=== PATIENT | female | born 1960 | race Caucasian/White ===

== ENCOUNTER 2019-10-19 14:17 | Inpatient (IN) | payer MEDICAID, SELFPAY ==
[2019-10-19 14:24] VITALS: BP 198/113; PULSE 128; RESP 18; TEMP 36.8; O2SAT 97; BMI 29.2
--- NOTE | 2019-10-19 14:29 | W.ED.GENADLT ---
HPI - General Adult General: Chief complaint: Psychiatric Symptoms Stated complaint: mhe Time Seen by Provider: 10/19/19 14:25 History of Present Illness: HPI narrative: Kendra is a 59-year-old female who comes in under a 96-hour hold. She made threats to her family about wanting to cut herself. She is been placed under 96-hour hold by the unit director and is here for medical clearance before going to the NPU. The patient denies any complaints or concerns at this time. Associated symptoms: Deny chest pain, confusion, diaphoresis, dyspnea, headache(s), malaise, nausea, rash, palpitations, syncope or vomiting Review of Systems General: Reports: other (negative unless marked) Const: Denies: fever, chills, body aches, fatigue, malaise or diaphoresis Eyes: Denies: change in vision or blurry vision ENMT: Denies: throat pain, painful swallowing, hoarseness, ear pain, ear discharge, Change in hearing or nasal discharge Card: Denies: chest pain, palpitations, irregular heart rhythm, syncope, pre-syncope, shortness of breath on exertion or shortness of breath when lying down Resp: Denies: shortness of breath, productive cough, non-productive cough, wheezing, coughing up blood or chest congestion GI: Denies: abdominal pain, nausea, vomiting, vomiting blood, coffee grounds in vomit, diarrhea, constipation, cramping, blood in stool or black tarry stool : Denies: flank pain, painful urination, urinary frequency, urinary urgency, decreased urine ouput, urinary incontinence or blood in urine Musc: Denies: neck pain, back pain, extremity pain, extremity swelling, joint pain, joint swelling, joint warmth or joint stiffness Skin/Breast: Denies: rash, skin tenderness or yellow skin Neuro: Denies: headache, numbness in extremities, weakness in extremities, changes in sensation, lack of coordination, difficulty walking, dizziness, vertigo or confusion Endo: Denies: excessive thirst, tired all the time, cold intolerance, excessive sweating, flushing or hot flashes Umair/Lymph: Denies: easy bruising, easy bleeding, petechiae or enlarged lymph nodes All/Imm: Denies: hives, throat swelling, tongue swelling, facial swelling or acute wheezing PFSH ED PFSH: Social History Smoking and tobacco status: never smoked Physical Exam Const: COMMON NORMALS: no apparent distress, oriented x3, no limitations, healthy appearing and well nourished EXAM LIMITATIONS: no altered mental status GENERAL APPEARANCE: cooperative, well kempt and well developed ORIENTATION/CONSCIOUSNESS: Yes awake HENMT: COMMON NORMALS: normocephalic, head/scalp atraumatic, hearing grossly normal bilaterally, external ears normal, EAC's normal, external nose normal and moist oral mucous membranes HEAD & SCALP: normal to inspection, normocephalic and atraumatic FACE & SINUS: normal facial exam and face symmetric NOSE: external nose normal and nares normal EXTERNAL EAR: Yes external ears normal EXTERNAL AUDITORY CANAL: EAC's normal MOUTH: oral and palatal mucosa normal and tongue normal Eye: COMMON NORMALS: PERRL, EOMs intact bilaterally, conjunctivae normal and no scleral icterus GENERAL EYE: normal appearance of both eyes and normal light reflex CONJUNCTIVA: Yes conjunctivae normal SCLERA: sclerae normal CORNEA: Yes corneas normal PUPIL: Yes PERRL DIRECT OPHTHALMOSCOPY: Yes normal light reflex Neck/C-Spine: COMMON NORMALS: full ROM, no lymphadenopathy, supple, no meningeal signs and no JVD GENERAL: Yes normal visual inspection and Yes trachea midline CERVICAL SPINE: Yes cervical ROM normal Chest: COMMONS NORMALS: inspection of chest normal and palpation of chest normal Resp: COMMON NORMALS: normal respiratory effort, no retractions, no use of accessory muscles and clear to auscultation bilaterally EFFORT & INSPECTION: Yes able to speak in complete sentences AUSCULTATION: clear to auscultation bilaterally Cardio: COMMON NORMALS: no JVD, regular rate, regular rhythm, S1 normal heart sound, S2 normal heart sound, no gallops, no clicks, no murmurs and no rub JUGULAR VENOUS DISTENTION: no JVD RATE: regular rate RHYTHM: regular rhythm HEART SOUNDS: S1 normal and S2 normal GI: COMMON NORMALS: soft to palpation, non-tender, no hepatosplenomegaly and no masses INSPECTION: Yes normal to inspection PALPATION: Yes soft and Yes no hepatosplenomegaly : COMMON NORMALS: Yes no CVA tenderness BLADDER/KIDNEY EXAM: Yes no CVA tenderness Back/Pelvis: COMMON NORMALS: no CVA tenderness, thoracic and lumbar spine normal to inspection, no thoracic nor lumbar tenderness and thoraco-lumbar ROM normal Extremity: COMMON NORMALS: normal to inspection, full ROM, normal capillary refill, no joint enlargement, no clubbing, cyanosis or edema and no calf tenderness Neuro: COMMON NORMALS: oriented x3, CN's II-XII intact bilaterally, moves all extremities, no focal motor deficits and no sensory deficits noted MENINGEAL SIGNS: Yes no meningeal signs Psych: COMMON NORMALS: mental status grossly normal, thought process normal, cooperative, affect normal, speech normal and activity/motor behavior normal APPEARANCE: Yes well kempt SPEECH: Yes normal speech THOUGHT PROCESS: normal thought process Skin: COMMON NORMALS: no rashes or lesions noted, skin turgor normal, no jaundice, no petechiae and no mottling GENERAL SKIN EXAM: no rashes or lesions noted and turgor normal Course Vital Signs: Vital signs: Vital Signs Temperature 97.6 F 10/19/19 17:24 Pulse Rate 96 10/19/19 17:24 Respiratory Rate 20 H 10/19/19 17:24 Blood Pressure 167/101 10/19/19 17:24 Pulse Oximetry 98 10/19/19 17:24 MDM - General Adult MDM Narrative: Medical decision making narrative: The case was reviewed with Dr. cheng he agrees to admit the patient under 96-hour hold. Lab Data: Attestation: I reviewed the patient's lab results. Labs: Lab Results 10/19/19 Range/Units 14:42 HCG, Qual Negative (Negative) EKG Data^: EKG 1: Attestation: I personally reviewed and interpreted this EKG as follows: EKG interpretation date: 10/19/19 EKG interpretation time: 14:42 Interpretation: Normal sinus rhythm at 103 beats a minute, normal axis, nonspecific ST-T wave changes. Normal QTC. Discharge Plan Discharge Patient Disposition: Admitted As Inpatient Admit Provider: Olvin Manning Clinical Impression: Suicidal ideation Condition: Stable Interventions: ED Discharge Assessment Last Done: 10/19/19 17:17 Discharge Date/Time: 10/19/19 17:20 Coding Level of Care Code ED Principal Hardware Architect for Chg Fwd Exam Comprehensive
[2019-10-19 15:07] LABS: HCG Qualitative Urine. Negative (Negative)
[2019-10-19 15:12] LABS: Basophils % 0.6 %; Eosinophils # 0.4 10^3/uL (0.0-0.8); Hematocrit 43.2 % (37.0-47.0); Hemoglobin 13.8 g/dL (11.5-15.3); Lymphocytes # 1.8 10^3/uL (0.8-4.8); Lymphocytes % 25.4 %; Mean Corpuscular HGB Conc 31.9 g/dL (30.0-36.0); Mean Corpuscular Hemoglobin 28.4 pg (28.0-34.0); Mean Corpuscular Volume 88.9 fL (81-99); Mean Platelet Volume 8.7 fL (7.4-10.4); Monocytes # 0.5 10^3/uL (0.2-0.9); Monocytes % 6.6 %; Neutrophils # 4.3 10^3/uL (1.8-7.7); Neutrophils % 61.7 %; Nucleated Red Blood Cells % 0 %; Platelet Count 334 10^3/cmm (130-400); Red Blood Count 4.86 10^6/uL (4.1-5.3); Red Cell Distribution Width 11.7 % (12.1-15.1)
[2019-10-19] MEDS: LORazepam 1 mg Tablet PO (15:16)
[2019-10-19 16:07] LABS: Lithium 0.1 mmol/L (0.6-1.2)
[2019-10-19 16:17] LABS: Alanine Aminotransferase 39 U/L (0-33); Albumin Level 4.5 g/dL (3.5-5.2); Alkaline Phosphatase 107 IU/L (35-105); Anion Gap 14.7 (5-19); Aspartate Amino Transferase 21 U/L (0-32); Blood Urea Nitrogen 11 mg/dL (6-20); Calcium 9.6 mg/dL (8.5-10.5); Carbon Dioxide 29 mmol/L (22-29); Chloride 98 mmol/L (98-107); Glucose 237 mg/dL (65-115); Osmolality Calculated 290 mOsm/kg (285-295); Phenytoin Dilantin 0.8 ug/mL (10-20); Potassium 3.7 mmol/L (3.5-5.1); Sodium 138 mmol/L (136-145); Thyroid Stimulating Hormone 1.28 uIU/mL (0.27-4.20); Total Bilirubin 0.2 mg/dL (0.15-1.2); Total Protein 7.5 g/dL (6.6-8.7); Valproic Acid Level 2.8 mcg/mL (50-100)
[2019-10-19 16:18] LABS: Acetaminophen < 10.0 ug/mL (10-30); Salicylate 0.3 mg/dL (3-10)
[2019-10-19 16:19] LABS: Alcohol Level 10 mg/dL (0-10)
[2019-10-19 17:17] VITALS: BP 171/104; PULSE 102; RESP 16; O2SAT 97
[2019-10-19 17:24] VITALS: BP 167/101; PULSE 96; RESP 20; TEMP 36.4; O2SAT 98
[2019-10-19 20:27] VITALS: BP 141/84; PULSE 80; RESP 19; TEMP 36.7; O2SAT 97
[2019-10-19 23:28] LABS: Amphetamines Screen Urine Negative (Negative); Barbiturates Screen Urine Negative (Negative); Benzodiazepines Screen Urine Negative (Negative); Cocaine Screen Urine Negative (Negative); Opiate Screen Urine Negative (Negative); PCP Screen Urine Negative (Negative); THC Screen Urine Negative (Negative)
[2019-10-19 23:30] LABS: Bilirubin Urine Neg (NEGATIVE); Blood Urine Neg (Negative); Glucose Urine UA 2+ (Normal); Ketones Urine Negative (Negative); Leukocyte Esterase Urine Negative (Negative); Nitrate Urine Negative (Negative); Protein Urine 1+ (Negative); Urine Appearance Clear (CLEAR); Urine Color Yellow (Yellow); Urobilinogen Urine Norm (Negative); pH Urine 6 (5-7)
[2019-10-19 23:31] LABS: Add Urine Microscopic? YES; Bacteria Urine TRACE; Calcium Oxalate Crystals Urine 40-55 /hpf; RBC Urine 0-4 /hpf (0-2); Squamous Epithelial Cell Urine 0-4 (0-5); WBC Urine 0-4 /hpf (0-5)
[2019-10-20 06:00] VITALS: BP 132/90; PULSE 87; RESP 18; TEMP 36.6; O2SAT 96
[2019-10-20] MEDS: amoxicillin-clav 500-125 mg Tablet 1 TAB PO ×2 (08:37→17:59)
--- NOTE | 2019-10-20 12:42 | P.HP_ITS ---
Providers/Chief Complaint Admitting Physician: Olvin Manning MD Chief Complaint: SI 96 HR HOLD HPI NPU History of Present Illness Chief complaint: I'm here because that little girl coughed in my face and now I'm on an antibiotic. History of present illness: Kendra Orlando Is a 59-year-old woman who believes she is here in the hospital primarily because she has an upper respiratory infection and also she was told that she needed to be on medication for her blood pressure. She has been having respiratory problems for the past week. She went to the urgent care center and they were started on amoxicillin and she has been getting better since she has been on the antibiotic. She was also told she had high blood pressure and that they needed to monitor that and put her on medication for blood pressure. She denied suicidal or homicidal ideation. She stated that her 2 years ago when she does think about that a lot. She said that she has high highs and low lows . However she has never been in a psychiatric hospital. She has been treated with antidepressants in the past by a primary care physician. She has never seen a psychiatrist. She was given Paxil and she said it did real well to level her out. Otherwise she denies being depressed. She has good hedonic capacity. She has a lot of difficulty with her neighbors. She claims that her neighbors call her on the phone and say things to her. She will not be specific as to what they say but she believes that they are trying to get her property. She denies the presence of auditory or visual hallucinations. Her appetite and sleep are good. She feels lonely but enjoys spending time with people she goes to the [facility]. She is on a 96 hour involuntary commitment signed by the transportation security officer in [facility]. The affidavit states that Kendra has become increasingly paranoid and suicidal. The affidavit states that the patient believes he is really not and he left and now lives in another country. sHe claims that she has threatened to slit her throat multiple times and has become angry increasingly aggressive the family friends and strangers. Kendra spends about 2 hours a day in her yard screaming which has increased over the past few days. Kendra believes at family neighbors are after her and has called the Admission Nurse Coordinator up to 6 times a day because she is scared people are after her. Kendra has exhibited homicidal behavior in the past. The patient says that all of that is nonsense. She misses her deeply. She sometimes jokes that maybe he still alive. However she denies that she stands in her yard and screams. She denies that she has ever made suicidal threats. She denies that she is not Caring for herself. She denies that she calls the Admission Nurse Coordinator to complain about her family neighbors. ER physician note:Kendra is a 59-year-old female who comes in under a 96-hour hold. She made threats to her family about wanting to cut herself. She is been placed under 96-hour hold by the transportation security officer and is here for medical clearance before going to the NPU. The patient denies any complaints or concerns at this time. Mental health history:The patient states that she has never been hospitalized for mental illness. She was treated with Paxil by her primary care physician provided benefit. She has never seen a psychiatrist. She has never been in counseling. Family psychiatric history: Negative according to patient Social history:The patient was born in [facility]. 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 She eventually and moved to [place]. Somewhere in there, she has worked in a grocery store and also done housecleaning. She was living with her in [place] in 2012 when he suddenly . He had multiple medical problems. She was present at his desk and that she describes the event in great detail during the interview. She then moved to [place]. She now lives alone in a trailer on the same property with her daughter. The patient claims that she owns a property along with another man. She would like to move from that property in [address] [place] [address] but does not know what she would do with the property. She has no close friends other than family. She engages in no goal-directed behaviors during the day other than taking care of herself. Legal history:There is no record of criminal activity or arrests in the [place] public record. Past medical history:See emergency room notes below. Meds NPU Home Medications Medication Instructions Recorded Confirmed Type ibuprofen 400 mg PO PRN 10/19/19 10/19/19 History Allergies Allergy/AdvReac Type Severity Reaction Status Date / Time clindamycin Allergy ALGY-Hives Verified 10/19/19 14:38 Sulfa (Sulfonamide Allergy ALGY-Hives Verified 10/19/19 14:38 Antibiotics) tramadol Allergy ADR-Vomitin Verified 10/19/19 14:38 g PFSH NPU PFSH: Social History Smoking and tobacco status: never smoked Mental Status Exam MSE Comments: Mental Status Exam: The patient is an affable energetic woman appearing approximately her stated age. She has poor dentition. Eye contact is good. Psychomotoric activity is unremarkable. She is believed to be a reliable informant to the best of her ability as information is internally consistent and generally consistent with that in the chart other than that related to the complaints in her affidavit. Appearance: hygiene is fair; no gross neurological deficits., gait is unremarkable; AIMS=0 Speech: Speech is of Accelerated rate and rhythm and easily understood. Thought processes: Thought processes are abstract. Judgment is Uncertain at this time Associations: intact Psychotic processes: There is no indication of guarding or paranoia. There is no attention to the internal stimuli. Auditory and visual hallucinations are denied. Judgment: Insight is fair. Problem solving skills are adequate for safety. Orientation: The patient is oriented to person, place time and situation. Memory: no deficits noted in immediate, intermediate, or remote spheres. Attention: The patient is alert and interpersonally engaged. Language: Verbalizations are coherent. Fund of knowledge: Fund of knowledge is adequate. Affect/Mood: Affect is Euphoric with aEuthymic mood. She denied suicidal i deation Affective range appropriate. Psychosis: perception unimpaired except through cognitive distortion; reality testing intact. Vitals/I&O/Wt Last Vital Signs Temp 97.8 F 10/20/19 06:00 Pulse 87 10/20/19 06:00 Resp 18 10/20/19 06:00 BP 132/90 10/20/19 06:00 Pulse Ox 96 10/20/19 06:00 Weight last 48 hrs Weight 63.503 kg Data NPU : 10/19/19 15:02 10/19/19 15:02 A&P Additional A&P Information Diagnoses:Major depression?single episode, mild severity Hypertension Assessment:There is an incredible discrepancy between what is described in the affidavit filed by her daughter and the story told by the patient. On examination, the patient displays no behaviors or attitudes that would indicate that she is in imminent risk to self or others. However, she may be highly guarded and more observation is warranted. The patient is agreeable to staying here for the full 96 hours as long as we promised to hold her here a long time. I'm unable to process the serial blood pressures which have been done in the EMR about her blood pressure is elevated over multiple readings. Treatment plan: Due to the psychiatric conditions and treatment listed in the Assessment and Plan - the patient requires continued hospitalization. Will provide a safe and therapeutic environment for patient.. Will continue inpatient treatment to allow for medication adjustment and monitoring. Will continue q15 min safety checks. The patient was willing and enthusiastic about the initiation of an ant idepressant medication that would leveled out . Mirtazapine will be initiated to 15 mg at bedtime. She was also agreeable to the initiation of lisinopril 10 mg daily for hypertension. Monitor patient's mood, sleep, appetite, and behavior closely. Encourage patient to participate in individual and group therapeutic sessions on the [place]. Estimated length of stay 5 days The expected benefits and potential side effects of patient's psychiatric medications were discussed with the patient. The patient understands and consents to treatment.CRITERIA FOR DISCHARGE: stable on medications and no l onger an im Involuntary Hold Information 96 Hour Hold: 96 Hour Involuntary Admission: No Attestations NPU Medical Necessity Statement*: Patient will remain in the hospital another 4-5 nights for the completion of her 96 hour involuntary commitment. Coding Level of Care Code Acute Farm Service Adviser for Tomy Navas
[2019-10-20] MEDS: lisinopril 10 mg Tablet PO (13:33)
[2019-10-20 14:00] VITALS: BP 155/89; PULSE 99; RESP 18; TEMP 36.7; O2SAT 97
[2019-10-20] MEDS: mirtazapine 15 mg Tablet PO (20:37)
[2019-10-20 22:00] VITALS: BP 112/73; PULSE 75; RESP 17; TEMP 36.5; O2SAT 93
[2019-10-21 06:00] VITALS: BP 116/80; PULSE 71; RESP 18; TEMP 36.7; O2SAT 95
[2019-10-21] MEDS: lisinopril 10 mg Tablet PO (08:25)
[2019-10-21] MEDS: amoxicillin-clav 500-125 mg Tablet 1 TAB PO ×2 (08:25→17:19)
--- NOTE | 2019-10-21 11:39 | P.PN_ITS ---
Subjective NPU Subjective: Interval history: Patient reports that she is doing well. She slept very well last night. Her only complaint today is 1 of having a sore throat. She denies the presence of fevers or chills, nausea or vomiting, or cough. She is keeping herself busy by watching TV. She says that she is in good spirits and denies suicidal or homicidal ideation. Mental Status Exam MSE Comments: Mental Status Exam: The patient is an affable energetic woman appearing approximately her stated age. She has poor dentition. Eye contact is good. Psychomotoric activity is unremarkable. She is believed to be a reliable informant to the best of her ability as information is internally consistent and generally consistent with that in the chart other than that related to the complaints in her affidavit. Appearance: hygiene is fair; no gross neurological deficits., gait is unremarkable; AIMS=0 Speech: Speech is of Accelerated rate and rhythm and easily understood. Thought processes: Thought processes are abstract. Judgment is Uncertain at this time Associations: intact Psychotic processes: There is no indication of guarding or paranoia. There is no attention to the internal stimuli. Auditory and visual hallucinations are denied. Judgment: Insight is fair. Problem solving skills are adequate for safety. Orientation: The patient is oriented to person, place time and situation. Memory: no deficits noted in immediate, intermediate, or remote spheres. Attention: The patient is alert and interpersonally engaged. Language: Verbalizations are coherent. Fund of knowledge: Fund of knowledge is adequate. Affect/Mood: Affect is Euphoric with Euthymic mood. She denied suicidal ideation Affective range appropriate. Psychosis: perception unimpaired except through cognitive distortion; reality testing intact. Cognition: Patient Appearance: Disheveled/Poor Hygiene Level of Consciousness: Awake and Alert Patient Cognition Impaired: Yes Ability to Follow Directions: Good Patient Orientation (long list): Person and Place Comprehension Ability: Mild Impairment Hallucination Type: None Delusion Description: Paranoid Ideation Thought Process: Circumstantial Affect: Affect Description: Appropriate and Calm Behavior: Patient Behavior: Appropriate Speech Pattern: Clear Vitals/I&O/Wt Last Vital Signs Temp 98.0 F 10/21/19 06:00 Pulse 71 10/21/19 06:00 Resp 18 10/21/19 06:00 BP 116/80 10/21/19 06:00 Pulse Ox 95 10/21/19 06:00 Weight last 48 hrs Weight 63.503 kg Data NPU : 10/19/19 15:02 10/19/19 15:02 A&P Additional A&P Information Diagnoses:Major depression?single episode, mild severity Hypertension Assessment:There is an incredible discrepancy between what is described in the affidavit filed by her daughter and the story told by the patient. On examination, the patient displays no behaviors or attitudes that would indicate that she is in imminent risk to self or others. However, she may be highly guarded and more observation is warranted. The patient is agreeable to staying here for the full 96 hours as long as we promised to hold her here a long time. I'm unable to process the serial blood pressures which have been done in the EMR about her blood pressure is elevated over multiple readings. Treatment plan: Due to the psychiatric conditions and treatment listed in the Assessment and Plan - the patient requires continued hospitalization. Will provide a safe and therapeutic environment for patient.. Will continue inpatient treatment to allow for medication adjustment and monitoring. Will continue q15 min safety checks. The patient was willing and enthusiastic about the initiation of an antidepressant medication that would leveled out . Mirtazapine will be initiated to 15 mg at bedtime. She was also agreeable to the initiation of lisinopril 10 mg daily for hypertension. Hospital day #2: Patient tolerated the initiation of lisinopril and a blood pressure has fallen to within acceptable limits. She is having a sore throat but no other signs of a viral illness. It is reasonable to treated symptomatically. Selected Entries 10/19/19 17:24 10/19/19 20:27 10/20/19 06:00 Temperature 97.6 F 98.1 F 97.8 F Blood Pressure 167/101 141/84 132/90 10/20/19 14:00 10/20/19 22:00 10/21/19 06:00 Temperature 98.1 F 97.7 F 98.0 F Blood Pressure 155/89 112/73 116/80 At this point she is demonstrating no signs or symptoms of either depression or mary jane. No signs of psychosis are noted. She is somewhat euphoric and affect but her appetite and sleep are good and there is no indication of impulsivity, flight of ideas, or irritability. Monitor patient's mood, sleep, appetite, and behavior closely. Encourage patient to participate in individual and group therapeutic sessions on the [place]. Estimated length of stay 5 days The expected benefits and potential side effects of patient's psychiatric medications were discussed with the patient. The patient understands and co nsents to treatment.CRITERIA FOR DISCHARGE: stable on medications and no longer an im Involuntary Hold Information 96 Hour Hold: 96 Hour Involuntary Admission: No Attestations NPU Medical Necessity Statement*: Patient will remain in the hospital another 4-5 nights for her 96-hour involuntary commitment. Coding Level of Care Code Acute Deputy Register Of Deeds for Tomy Navas
[2019-10-21] MEDS: cetylpyridinium Lozenge 1 EACH PO ×2 (12:20→17:19)
--- NOTE | 2019-10-21 12:21 | PC.NURSE ---
PRN CEPACOL 1 LOZENGE GIVEN PO PER PT C/O COUGH/SORE THROAT. WILL CONT TO MONITOR
[2019-10-21 12:46] VITALS: BP 118/70; PULSE 82; RESP 19; TEMP 36.7; O2SAT 97
--- NOTE | 2019-10-21 17:22 | PC.NURSE ---
PRN CEPACOL 1 LOZENGE GIVEN PO PER PT C/O COUGH/SORE THROAT. WILL CONT TO MONITOR.
[2019-10-21] MEDS: mirtazapine 15 mg Tablet PO (20:29)
[2019-10-21 22:00] VITALS: BP 125/81; PULSE 88; RESP 18; TEMP 37; O2SAT 97
[2019-10-22 06:00] VITALS: BP 151/85; PULSE 86; RESP 18; TEMP 36.8; O2SAT 95
[2019-10-22] MEDS: lisinopril 10 mg Tablet PO (08:02)
[2019-10-22] MEDS: amoxicillin-clav 500-125 mg Tablet 1 TAB PO ×2 (08:02→17:18)
[2019-10-22 14:00] VITALS: BP 142/82; PULSE 80; RESP 18; TEMP 36.6; O2SAT 97
--- NOTE | 2019-10-22 14:55 | PM.NPN ---
Subjective NPU Subjective: Interval history: Kendra presents today reporting that everything is okay. She reports that she is not really sure why she had to come to the hospital. However, she does report that she is taking the medication as prescribed and that she does feel better. The notes suggest that she possibly has some cognitive limitations, however her challenges, she reports, are that her about a year ago, and she struggles with the issues surrounding his . She reports that she has limited supports and really needs to figure out what she is going to do. She reports that there have been times that she has thought about killing herself and that those symptoms and those thoughts are resolving. Mental Status Exam MSE Comments: This is an obese, white female, with adequate dress, grooming, and eye contact. No abnormal movements. Cooperative with exam in no acute distress. Speech was decreased rate and volume. Mood described as okay; affect congruent. Thought process, organized. Thought content: patient denied any suicidal or homicidal ideation, there were no delusions reported or noted, she denied any auditory or visual hallucinations. Attention and concentration appeared intact, and memory was unreliable, but none were formally tested. She is alert and oriented times three. Insight and judgment are limited. Intellectual ability appears limited. Vitals/I&O/Wt Last Vital Signs Temp 97.8 F 10/22/19 14:00 Pulse 80 10/22/19 14:00 Resp 18 10/22/19 14:00 BP 142/82 10/22/19 14:00 Pulse Ox 97 10/22/19 14:00 Weight last 48 hrs Weight 67.812 kg Data NPU : 10/19/19 15:02 10/19/19 15:02 A&P Additional A&P Information This is a 59-year-old white female with a history of depression and concern for possible cognitive decline with reports from daughter of changes in her functioning to where she is lacking independence that she previously had for self-care overall. 1. Continue current medication. 2. Encourage individual and milieu therapy. 3. Continue to 15-minute checks for safety. 4. We will work with social work team tomorrow to time and safe and appropriate discharge given her 96-hour hold. Involuntary Hold Information 96 Hour Hold: 96 Hour Involuntary Admission: No Attestations NPU Medical Necessity Statement*: Inpatient hospitalization is medically necessary and the clinically appropriate intervention at this time. We will discuss with treatment team and family safe discharge plan likely length of stay 2 to 3 days. Coding Level of Care Code Acute Gang Drill Press Operator for Tomy Navas
[2019-10-22] MEDS: trazodone 50 mg Tablet PO (21:10)
[2019-10-22] MEDS: mirtazapine 15 mg Tablet PO (21:10)
[2019-10-22 21:31] VITALS: BP 124/76; PULSE 85; RESP 20; TEMP 36.4; O2SAT 100
--- NOTE | 2019-10-22 21:35 | PC.NURSE ---
Pt given HS remeron and prn trazodone at 2109.
--- NOTE | 2019-10-23 05:43 | PM.NPN ---
Subjective NPU Subjective: Interval history: Kendra initially was resistant to the idea of the fact that her psychosocial circumstances had truly had a significant drop off. But with continued conversation with her daughter and the treatment team she acknowledged the significant issues at home. The trailer that she is staying in she is not keeping up. Her self-care has had a step off when there is not someone actively engaged in her daughter has a full plate and is trying to make sure that her mom has the best options. So Kendra was open to us making referrals which we had some receptive conversations with facilities. We agree that we would see what the possible time look like to see what the risk-benefit equation look like for discharge versus her staying here for couple days and being directly delivered to a facility to continue the improvement that she is making. Mental Status Exam MSE Comments: This is an obese, white female, with adequate dress, grooming, and eye contact. No abnormal movements. Cooperative with exam in no acute distress. Speech was decreased rate and volume. Mood described as a little better; affect congruent. Thought process, organized. Thought content: patient denied any suicidal or homicidal ideation, there were no delusions reported or noted, she denied any auditory or visual hallucinations. Attention and concentration appeared intact, and memory was unreliable, but none were formally tested. She is alert and oriented times three. Insight and judgment are limited. Intellectual ability appears limited. Vitals/I&O/Wt Last Vital Signs Temp 98.2 F 10/23/19 21:56 Pulse 84 10/23/19 21:56 Resp 17 10/23/19 21:56 BP 160/81 10/23/19 21:56 Pulse Ox 98 10/23/19 21:56 Weight last 48 hrs Weight 67.812 kg Data NPU : 10/19/19 15:02 10/19/19 15:02 A&P Additional A&P Information This is a 59-year-old white female with a history of depression and concern for possible cognitive decline with reports from daughter of changes in her functioning to where she is lacking independence that she previously had for self-care overall. 1. Continue current medication. 2. Encourage individual and milieu therapy. 3. Continue to 15-minute checks for safety. 4. We will work with social work team for an appropriate discharge option as well as considering support for Guardianship. Involuntary Hold Information 96 Hour Hold: 96 Hour Involuntary Admission: No Attestations NPU Medical Necessity Statement*: Inpatient hospitalization is medically necessary and the clinically appropriate intervention at this time. We will discuss with treatment team and family safe discharge plan likely length of stay 2 to 3 days. Coding Level of Care Code Acute Cyber Workforce Developer And Manager for Tomy Navas
[2019-10-23 06:00] VITALS: BP 117/82; PULSE 70; RESP 18; TEMP 36.8; O2SAT 97
[2019-10-23] MEDS: lisinopril 10 mg Tablet PO (08:14)
[2019-10-23] MEDS: amoxicillin-clav 500-125 mg Tablet 1 TAB PO ×2 (08:14→17:09)
[2019-10-23] MEDS: cetylpyridinium Lozenge 1 EACH PO (08:14)
--- NOTE | 2019-10-23 08:15 | PC.NURSE ---
PRN CEPACOL 1 LOZENGE GIVEN PO PER PT C/O SORE THROAT/COUGH. WILL CONT TO MONITOR.
[2019-10-23 14:00] VITALS: BP 121/88; PULSE 93; RESP 20; TEMP 36.8; O2SAT 93
[2019-10-23] MEDS: trazodone 50 mg Tablet PO (20:12)
[2019-10-23] MEDS: mirtazapine 15 mg Tablet PO (21:23)
--- NOTE | 2019-10-23 21:36 | PC.NURSE ---
Pt given scheduled remeron and prn trazodone at 2011.
[2019-10-23 21:56] VITALS: BP 160/81; PULSE 84; RESP 17; TEMP 36.8; O2SAT 98
[2019-10-24 06:00] VITALS: BP 108/74; PULSE 77; RESP 16; TEMP 36.8; O2SAT 96
[2019-10-24] MEDS: lisinopril 10 mg Tablet PO (08:10)
[2019-10-24] MEDS: amoxicillin-clav 500-125 mg Tablet 1 TAB PO ×2 (08:10→17:59)
--- NOTE | 2019-10-24 13:46 | PM.NPN ---
Subjective NPU Subjective: Interval history: The patient presents today reporting that she is feeling pretty good. She still feels strongly that she did not have the sort of break down that people said she had. But she is doing much better and identifying that she does need support to be successful outside of the hospital. We have worked with social work to put in all the necessary paperwork to make it much more user friendly for her, and her daughter, to find options once she is discharged. We had an option that we thought might work for her, however, we explained to her that they just are not taking anyone right now. So we discussed the risks, benefits, and alternatives of discharging tomorrow with a plan of them following up with those resources. Mental Status Exam MSE Comments: This is an obese, older, white female, with adequate dress, grooming, and eye contact. No abnormal movements, except for mild psychomotor retardation. Cooperative with exam in no acute distress. Speech was normal rate and volume. Mood described as better; affect congruent. Thought process, organized. Thought content: patient denied any suicidal or homicidal ideation, there were no delusions reported or noted, patient denied any auditory or visual hallucinations. Attention, concentration, and memory appeared intact but were not formally tested. She is alert and oriented times three. Intellectual ability is limited. Insight and judgment are limited but improving. Vitals/I&O/Wt Last Vital Signs Temp 98.0 F 10/24/19 22:00 Pulse 100 10/24/19 22:00 Resp 17 10/24/19 22:00 BP 125/87 10/24/19 22:00 Pulse Ox 95 10/24/19 22:00 Data NPU : 10/19/19 15:02 10/19/19 15:02 A&P Additional A&P Information This is a 59-year-old white female with a history of depression and concern for possible cognitive decline with reports from daughter of changes in her functioning to where she is lacking independence that she previously had for self-care overall. 1. Continue current medication. 2. Encourage individual and milieu therapy. 3. Continue to 15-minute checks for safety. 4. We will work with social work team to have paperwork completed so patient can access resources outside of the inpatient setting. Involuntary Hold Information 96 Hour Hold: 96 Hour Involuntary Admission: No Attestations NPU Medical Necessity Statement*: Inpatient hospitalization is medically necessary and the clinically appropriate intervention at this time. We will discuss with treatment team and family safe discharge plan likely length of stay 1-2 days. Tentative plan for discharge tomorrow. Coding Level of Care Code Acute Hospital Fellow for Tomy Navas
[2019-10-24 14:00] VITALS: BP 127/84; PULSE 105; RESP 20; TEMP 36.7; O2SAT 95
[2019-10-24] MEDS: OLANZapine ODT 5 MG TABLET PO (20:12)
[2019-10-24] MEDS: mirtazapine 15 mg Tablet PO (20:12)
--- NOTE | 2019-10-24 20:12 | PC.NURSE ---
Pt given scheduled Remeron and PRN zyprexa.
[2019-10-24 22:00] VITALS: BP 125/87; PULSE 100; RESP 17; TEMP 36.7; O2SAT 95
[2019-10-25 06:00] VITALS: BP 138/93; PULSE 84; RESP 18; TEMP 36.9; O2SAT 95
[2019-10-25] MEDS: amoxicillin-clav 500-125 mg Tablet 1 TAB PO (08:10)
[2019-10-25] MEDS: lisinopril 10 mg Tablet PO (08:10)
--- NOTE | 2019-10-25 13:35 | P.DS_ITS ---
Diagnoses at Discharge Discharge Diagnosis (1) Depressive disorder: Status: Acute (2) PTSD (post-traumatic stress disorder): Status: Acute (3) Intellectual disability: Status: Acute Reason for Visit Reason for Visit: Reason For Visit: SI 96 HR HOLD Brief History: History of Present Illness Chief complaint: I'm here because that little girl coughed in my face and now I'm on an antibiotic. History of present illness: Kendra Orlando Is a 59-year-old woman who believes she is here in the hospital primarily because she has an upper respiratory infection and also she was told that she needed to be on medication for her blood pressure. She has been having respiratory problems for the past week. She went to the urgent care center and they were started on amoxicillin and she has been getting better since she has been on the antibiotic. She was also told she had high blood pressure and that they needed to monitor that and put her on medication for blood pressure. She denied suicidal or homicidal ideation. She stated that her 2 years ago when she does think about that a lot. She said that she has high highs and low lows . However she has never been in a psychiatric hospital. She has been treated with antidepressants in the past by a primary care physician. She has never seen a psychiatrist. She was given Paxil and she said it did real well to level her out. Otherwise she denies being depressed. She has good hedonic capacity. She has a lot of difficulty with her neighbors. She claims that her neighbors call her on the phone and say things to her. She will not be specific as to what they say but she believes that they are trying to get her property. She denies the presence of auditory or visual hallucinations. Her appetite and sleep are good. She feels lonely but enjoys spending time with people she goes to the [facility]. She is on a 96 hour involuntary commitment signed by the technician chemical cleaning in [facility]. The affidavit states that Kendra has become increasingly paranoid and suicidal. The affidavit states that the patient believes he is really not and he left and now lives in another country. sHe claims that she has threatened to slit her throat multiple times and has become angry increasingly aggressive the family friends and strangers. Kendra spends about 2 hours a day in her yard screaming which has increased over the past few days. Kendra believes at family neighbors are after her and has called the Carburetor Specialist up to 6 times a day because she is scared people are after her. Kendra has exhibited homicidal behavior in the past. The patient says that all of that is nonsense. She misses her deeply. She sometimes jokes that maybe he still alive. However she denies that she stands in her yard and screams. She denies that she has ever made suicidal threats. She denies that she is not Caring for herself. She denies that she calls the Carburetor Specialist to complain about her family neighbors. ER physician note:Kendra is a 59-year-old female who comes in under a 96-hour hold. She made threats to her family about wanting to cut herself. She is been placed under 96-hour hold by the technician chemical cleaning and is here for medical clearance before going to the NPU. The patient denies any complaints or concerns at this time. Mental health history:The patient states that she has never been hospitalized for mental illness. She was treated with Paxil by her primary care physician provided benefit. She has never seen a psychiatrist. She has never been in counseling. Family psychiatric history: Negative according to patient Social history:The patient was born in [facility]. 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 She eventually and moved to [place]. Somewhere in there, she has worked in a grocery store and also done housecleaning. She was living with her in [place] in 2012 when he suddenly . He had multiple medical problems. She was present at his desk and that she describes the event in great detail during the interview. She then moved to [place]. She now lives alone in a trailer on the same property with her daughter. The patient claims that she owns a property along with another man. She would like to move from that property in [address] [place] [address] but does not know what she would do with the property. She has no close friends other than family. She engages in no goal-directed behaviors during the day other than taking care of herself. Legal history:There is no record of criminal activity or arrests in the [place] public record. Past medical history:See emergency room notes below. Hospital Course Hospital Course Kendra presented to the emergency room with suicidal thoughts and functioning poorly in the trailer in which she was living. She was struggling with confusion, a decrease in her ability to manage her activities of daily living, as well as some strange behaviors. She was admitted to the neuropsychiatric unit on a 96-hour hold on the basis of those behaviors. Initially she was resistant to some of the resources that we attempted to procure for her. Specifically we were able to get paperwork processed for her to possibly go to an assisted living facility or higher level of care. However with the COVID crisis getting someone to commit to someone has been increasingly difficult. We were able to secure an appointment with a physician who oversees multiple facilities so that he can see that she would be an excellent candidate for their programming. She slowly acclimated to the resources provided but ultimately did embrace the fact that we were acting to help her get out of what was a reportedly unfit situation to live. The Remeron was initiated and she had a very positive response. During the hospitalization she had routine laboratory studies which were within normal limits except for a few outliers. Additionally there was a general medical evaluation which was also within normal limits and revealed no new acute processes. Discharge Summary At the time of discharge, she denied any lethality and was absent psychosis. Mood and anxiety were well managed and she endorsed a plan to avoid drugs of abuse, and follow-up with the recommended post hospital services. She was evaluated and deemed to be absent lethality and had received the maximum benefit from an inpatient hospitalization, so was discharged. Involuntary Hold Information 96 Hour Hold: 96 Hour Involuntary Admission: No Mental Status Exam MSE Comments: This is an obese, older, white female, with adequate dress, grooming, and eye contact. No abnormal movements, except for improving mild psychomotor retardation. Cooperative with exam in no acute distress. Speech was normal rate and volume. Mood described as much better; affect congruent. Thought process, organized. Thought content: patient denied any suicidal or homicidal ideation, there were no delusions reported or noted, patient denied any auditory or visual hallucinations. Attention, concentration, and memory appeared intact but were not formally tested. She is alert and oriented times three. Intellectual ability is limited. Insight and judgment are limited but improving. Discharge Data Vitals: Last Vital Signs Temp 98.4 F 10/25/19 06:00 Pulse 84 10/25/19 06:00 Resp 18 10/25/19 06:00 BP 138/93 10/25/19 06:00 Pulse Ox 95 10/25/19 06:00 Discharge Plan Discharge Patient Disposition: Home, Self-Care Condition: Stable Prescriptions: New lisinopril 10 mg Tablet 10 mg PO DAILY 30 Days Qty: 30 RF: 1 mirtazapine 15 mg Tablet 15 mg PO BEDTIME 30 Days Qty: 30 RF: 1 Continued ibuprofen 200 mg Tablet 400 mg PO PRN RF: 0 Augmentin 500-125 mg tablet 1 tab PO BID 8 Days Qty: 14 RF: 0 Discharge Orders: Discharge Order (Routine); Ordered 10/25/19 Ordered By: Vineet Delgado [place] [facility] [Outside] - 4-7 days (We will coordinate for [facility] to contact you for an initial assessment. They are currently doing this over the phone due to COVID-19. Once you do this assessment you will be referred for appropriate services. Medication management and case management services would be recommended.) Devyn Randhawa DO [Physician] - 10/26/19 7:30 am (Scheduled by family to see about going to half-way.) Discharge Diet: Regular Discharge Activity: Resume usual activity Patient Instructions: Lisinopril (By mouth), Mirtazapine (By mouth), Post Traum atic Stress Disorder (GEN) Discharge Date/Time: 10/25/19 15:47 Discharge Attestations NPU Time Spent in Discharge Care*: less than 30 min Specific Discharge Activities: Specific discharge activities: educating patient, educating and/or supporting family/caregiver, discussing with counter caser/social workers/dc planners, documenting/other paperwork and evaluating patient/reviewing data Coding Level of Care Code Acute Validation Software Facilitator for g Fwd Diagnoses Depressive disorder F32.9 PTSD (post-traumatic stress disorder) F43.10 Intellectual disability F79
[2019-10-25 14:01] VITALS: BP 138/93; PULSE 84; RESP 18; TEMP 36.9; O2SAT 95
== END 2019-10-25 15:47 | disposition home or self-care (01) | DRG 885 ==
LOC: ER 14:25 → NP 15:19
PROVIDERS: Admitting Provider Psychiatry & Neurology Psychiatry; Emergency Provider Emergency Medicine; Family Provider Family Medicine; Visit Provider Psychiatry & Neurology Psychiatry
DX: F32.0 Major depressive disorder, single episode, mild (principal); R45.851 Suicidal ideations; I10 Essential (primary) hypertension; F43.10 Post-traumatic stress disorder, unspecified; F79 Unspecified intellectual disabilities; J06.9 Acute upper respiratory infection, unspecified
CPT/HCPCS: 12345; 36415; 80053; 80156; 80164; 80178; 80185; 80306; 80307; 81001; 81025; 84443; 85025; 99284; 99285

== ENCOUNTER 2019-10-19 14:17 | Emergency (ER) | payer MEDICAID, SELFPAY | END 2019-10-19 17:20 | disposition admitted as inpatient to this hospital (09) | LOC: ER 10-23 09:13 | PROVIDERS: Emergency Provider Emergency Medicine; Family Provider Family Medicine | DX: R45.851 Suicidal ideations (principal) | CPT/HCPCS: 12345; 36415; 85025; 99284; 99285 ==

== ENCOUNTER 2020-05-13 09:40 | Outpatient (CLI) | payer MEDICAID, SELFPAY ==
--- NOTE | 2020-05-13 09:47 | MM_ITS ---
WS: [id number] Bilateral screening digital mammogram, 05/13/2020 Clinical Data: SCREENING Comparison: 05/12/2019, 04/19/2018, 03/15/2017, 01/08/2016, 01/04/2015, 12/05/2014, 11/14/2013, 10/31/2012, 08/06, 04/11/2007. Findings: The breast parenchymal pattern shows fat replacement. No spiculated masses or clustered calcification s are seen. There are no secondary signs of carcinoma. MM/[id number] Impression: 1. Negative bilateral mammogram unchanged. 2. Recommend annual screening mammograms. BIRADS: 1-Negative FOLLOW UP: 1 Year Follow-up The CAD controlled area checker was used.
== END 2020-05-13 09:41 | disposition home or self-care (01) ==
LOC: RADSHAW 09:43
PROVIDERS: PCP Nurse Practitioner Family; Visit Provider Nurse Practitioner Family
DX: Z12.31 Encounter for screening mammogram for malignant neoplasm of breast (principal)
CPT/HCPCS: 77067

== ENCOUNTER 2021-07-18 09:35 | Outpatient (CLI) | payer MEDICAID, SELFPAY ==
--- NOTE | 2021-07-18 09:50 | MM_ITS ---
WS: [id number] BILATERAL SCREENING DIGITAL MAMMOGRAM WITH CAD HISTORY: SCREENING COMPARISON: 05/13/2020, 05/12/2019 and 04/19/2018 Bilateral CC and MLO views submitted. Computer aided detection analyzed. Breast composition: There are scattered areas of fibroglandular density. No suspicious masses, microc alcifications or architectural distortion. Stable asymmetry in the LEFT breast. MM/[id number] IMPRESSION: BI-RADS: 2-Benign FOLLOW UP: 1 Year Follow-up
== END 2021-07-18 09:36 | disposition home or self-care (01) ==
PROVIDERS: PCP Nurse Practitioner Family; Visit Provider Nurse Practitioner Family
DX: Z12.31 Encounter for screening mammogram for malignant neoplasm of breast (principal)
CPT/HCPCS: 77067

== ENCOUNTER → 2022-02-08 10:04 | Outpatient (BNVA) | payer MEDICAID, SELFPAY | PROVIDERS: PCP Nurse Practitioner Family; Visit Provider Family Medicine | DX: N39.0 Urinary tract infection, site not specified (principal) | CPT/HCPCS: 81000 ==

== ENCOUNTER → 2022-03-21 10:21 | Outpatient (BNVA) | payer MEDICAID, SELFPAY | PROVIDERS: PCP Nurse Practitioner Family; Visit Provider Registered Nurse Neonatal Intensive Care | DX: N39.0 Urinary tract infection, site not specified (principal) | CPT/HCPCS: 81000 ==

== ENCOUNTER → 2022-06-05 08:30 | Outpatient (BNVA) | payer MEDICAID, SELFPAY | PROVIDERS: PCP Nurse Practitioner Family; Visit Provider Internal Medicine Cardiovascular Disease | DX: I47.1 Supraventricular tachycardia (principal); I10 Essential (primary) hypertension; E78.5 Hyperlipidemia, unspecified; F79 Unspecified intellectual disabilities; F17.200 Nicotine dependence, unspecified, uncomplicated | CPT/HCPCS: 99214 ==

== ENCOUNTER 2022-08-07 12:24 | Outpatient (CLI) | payer MEDICAID, SELFPAY ==
--- NOTE | 2022-08-07 12:46 | MM_ITS ---
WS: [id number] Bilateral screening 3D tomosynthesis digital mammogram, 08/07/2022 Clinical Data: SCREENING Comparison: 07/18/2021, 05/13/2020, 05/12/2019, 04/19/2018, 03/15/2017, 01/08/2016, 01/04/2015, 12/05/2014, 11/02, 10/31/2012. Findings: The breast parenchymal pattern shows glandular tissue. No spiculated masses or clustered calcificatio ns are seen. There are no secondary signs of carcinoma. There are lymph nodes in both axilla. MM/[place] [id number] Impression: 1. Negative bilateral mammogram unchanged. 2. Recommend annual screening mammograms. BIRADS: 1-Negative FOLLOW UP: 1 Year Follow-up The CAD drawing checker was used.
== END 2022-08-07 12:25 | disposition home or self-care (01) ==
LOC: RAD 12:25
PROVIDERS: PCP Nurse Practitioner Family; Visit Provider Nurse Practitioner Family
DX: Z12.31 Encounter for screening mammogram for malignant neoplasm of breast (principal)
CPT/HCPCS: 77063; 77067

== ENCOUNTER → 2023-01-12 11:20 | Outpatient (BNVA) | payer MEDICAID, SELFPAY | PROVIDERS: PCP Nurse Practitioner Family; Visit Provider Podiatrist Foot & Ankle Surgery | DX: I73.9 Peripheral vascular disease, unspecified (principal); L60.3 Nail dystrophy; M21.611 Bunion of right foot; M21.612 Bunion of left foot; M21.41 Flat foot [pes planus] (acquired), right foot; M21.42 Flat foot [pes planus] (acquired), left foot; F79 Unspecified intellectual disabilities; Z79.84 Long term (current) use of oral hypoglycemic drugs | CPT/HCPCS: 11721; 99203 ==

== ENCOUNTER → 2023-04-13 09:23 | Outpatient (BNVA) | payer MEDICAID, SELFPAY | PROVIDERS: PCP Nurse Practitioner Family; Visit Provider Podiatrist Foot & Ankle Surgery | DX: I73.9 Peripheral vascular disease, unspecified (principal); M21.611 Bunion of right foot; M21.612 Bunion of left foot; M21.41 Flat foot [pes planus] (acquired), right foot; M21.42 Flat foot [pes planus] (acquired), left foot; L60.3 Nail dystrophy; F79 Unspecified intellectual disabilities; E11.9 Type 2 diabetes mellitus without complications; Z79.84 Long term (current) use of oral hypoglycemic drugs | CPT/HCPCS: 11721 ==

== ENCOUNTER 2023-10-14 10:06 | Outpatient (CLI) | payer MEDICAID, SELFPAY ==
--- NOTE | 2023-10-14 10:09 | MM_ITS ---
WS: [id number] SCREENING DIGITAL TOMOSYNTHESIS MAMMOGRAM WITH CAD HISTORY: SCREENING COMPARISON: 08/07/2022, 07/18/2021 Bilateral CC and MLO with tomosynthesis views submitted. Synthetic mammography reviewed. Computer aid ed detection analyzed. Breast composition: There are scattered areas of fibroglandular density. No suspicious masses, microc alcifications or architectural distortion. Benign skin calcifications. IMPRESSION: MM/[id number] BI-RADS: 2-Benign FOLLOW UP: 1 Year Follow-up
== END 2023-10-14 10:07 | disposition home or self-care (01) ==
PROVIDERS: PCP Nurse Practitioner Family; Visit Provider Nurse Practitioner Family
DX: Z12.31 Encounter for screening mammogram for malignant neoplasm of breast (principal)
CPT/HCPCS: 77063; 77067

== ENCOUNTER → 2023-10-27 14:47 | Outpatient (BNVA) | payer MEDICAID, SELFPAY | PROVIDERS: PCP Nurse Practitioner Family; Visit Provider Podiatrist Foot & Ankle Surgery | DX: I73.9 Peripheral vascular disease, unspecified (principal); M21.611 Bunion of right foot; M21.612 Bunion of left foot; M21.41 Flat foot [pes planus] (acquired), right foot; M21.42 Flat foot [pes planus] (acquired), left foot; F79 Unspecified intellectual disabilities; E11.42 Type 2 diabetes mellitus with diabetic polyneuropathy; Z79.84 Long term (current) use of oral hypoglycemic drugs | CPT/HCPCS: 99213 ==

== ENCOUNTER 2023-12-27 14:40 | Outpatient (CLI) | payer MEDICAID, SELFPAY ==
--- NOTE | 2023-12-27 15:07 | XR_ITS ---
WS: [id number] SCREENING DEXA SCAN [employer] CLINICAL INFORMATION: POSTMENOPAUSAL COMPARISON: None. FINDINGS: The L1-L4 bone mineral density measures 1.401 g/cm2. This corresponds to a T score score of 1.8 and Z score of 3.3. Left femoral neck bone mineral density measures 0.952 g/cm2. This corresponds to a T score of -0.4 an d Z score of 0.7. Right femoral neck bone mineral density measures 0.877 g/cm2. This corresponds to a T score -1.0of an d Z score of 0.1. Mean femoral neck bone mineral density measures 0.914 g/cm2. This corresponds to a T score of -0.7 an d Z score of 0.4. XR/XR DEXA axial skeleton* [id number] IMPRESSION: Normal bone mineralization. Patient's FRAX calculated 10 year probability for major osteoporotic fracture i s 13.8% and osteoporotic hip fracture is 1.3%.
== END 2023-12-27 14:41 | disposition home or self-care (01) ==
PROVIDERS: PCP Nurse Practitioner Family; Visit Provider Nurse Practitioner Family
DX: Z13.820 Encounter for screening for osteoporosis (principal); Z78.0 Asymptomatic menopausal state
CPT/HCPCS: 77080

== ENCOUNTER → 2024-11-02 14:34 | Outpatient (BNVA) | payer MEDICAID, SELFPAY | PROVIDERS: PCP Nurse Practitioner Family; Visit Provider Podiatrist Foot & Ankle Surgery | DX: E11.8 Type 2 diabetes mellitus with unspecified complications (principal); I73.9 Peripheral vascular disease, unspecified; M21.611 Bunion of right foot; M21.612 Bunion of left foot; M21.41 Flat foot [pes planus] (acquired), right foot; M21.42 Flat foot [pes planus] (acquired), left foot; F79 Unspecified intellectual disabilities; E11.42 Type 2 diabetes mellitus with diabetic polyneuropathy; Z79.84 Long term (current) use of oral hypoglycemic drugs | CPT/HCPCS: 99213 ==

== ENCOUNTER 2025-01-12 13:19 | Outpatient (CLI) | payer MEDICAID, SELFPAY ==
--- NOTE | 2025-01-12 13:30 | MM_ITS ---
WS: [id number] BILATERAL 3D TOMOSYNTHESIS DIGITAL SCREENING MAMMOGRAPHY WITH CAD CLINICAL INFORMATION: SCREENING HISTORY: Screening mammogram. No current complaints. COMPARISON: 2023 TECHNIQUE: Bilateral CC and MLO views. FINDINGS: Scattered fibroglandular densities bilaterally. No suspicious focal mass, asymmetry, calcifications, or architectural distortion. No evidence of malignancy. Skin calcifications. MM/MM scr tomosynthesis [id number] IMPRESSION: DENSITY: There are scattered areas of fibroglandular density. BI-RADS: 2 - Benign. FOLLOW UP: 1 Year Follow-up Recommend return to annual screening mammography.
== END 2025-01-12 13:20 | disposition home or self-care (01) ==
LOC: RAD 13:20
PROVIDERS: PCP Nurse Practitioner Family; Visit Provider Nurse Practitioner Family
DX: Z12.31 Encounter for screening mammogram for malignant neoplasm of breast (principal)
CPT/HCPCS: 77063; 77067